=== PATIENT | female | born 1990 | race Two or more races ===

== ENCOUNTER 2019-02-18 13:08 | Emergency (ER) | payer MEDICAID ==
[~2019-02-18] VITALS: Ht 160 cm; Wt 53.8 kg
[2019-02-18 13:14] VITALS: BP 115/64
[2019-02-18] MEDS ORDERED: DEXAMETHASONE 4 MG TABLET PO ONE (13:30)
[2019-02-18] MEDS ORDERED: DEXAMETHASONE 4 MG TABLET ONE (13:57)
== END 2019-02-18 14:19 | disposition home or self-care (01) ==
LOC: ED 13:41
DX: B34.9 Viral infection, unspecified (principal)
CPT/HCPCS: 71046; 99283